=== PATIENT | female | born 1990 | race Hispanic/Latino ===

== ENCOUNTER 2016-11-04 23:59 | Inpatient (IN) | payer OTHER ==
[~2016-11-04] VITALS: Ht 162.6 cm; Wt 95.7 kg
[~2016-11-04 23:59] MED LIST: PREN1TAB47 PO
[2016-11-05] MEDS ORDERED: Lactated Ringer's 1,000 ML IV PRN (02:23)
[2016-11-05] MEDS ORDERED: Methylergonovine 0.2 mg/mL Inj IM PRN ×2 (02:25→08:15)
[2016-11-05] MEDS ORDERED: Oxytocin 30 Units/500 mL LR 30 UNITS in IV Premix 1 EACH IV PRN ×2 (02:25→08:15)
[2016-11-05] MEDS ORDERED: Oxytocin 10 Unit/mL Inj IM PRN ×2 (02:25→08:15)
[2016-11-05] MEDS ORDERED: fentaNYL-PF 50 mCg/mL 2 mL Inj IVPUSH PRN ×2 (02:25→03:55)
[2016-11-05] MEDS ORDERED: Penicillin G K Inj 5,000,000 UNITS in Dextrose 5% Minibag Plus 100 ML IV ONE (02:25)
[2016-11-05] MEDS ORDERED: Carboprost 250 mCg/mL Inj IM PRN ×2 (02:25→08:15)
[2016-11-05] MEDS ORDERED: Sodium Chloride LOK Flush 10 mL Syringe IVFLUSH PRN (02:25)
[2016-11-05] MEDS ORDERED: Hemorrhage Kit, Post Partum XX ONE ×2 (02:25→08:15)
[2016-11-05 02:35] LABS: Mean Corpuscular Hemoglobin 28.8 pg (27.0-35.0); Mean Corpuscular Volume 80.5 fL (81-100)
[2016-11-05] MEDS ORDERED: Lactated Ringer's 1,000 ML IV SCH ×2 (03:54→08:11)
[2016-11-05] MEDS ORDERED: Lactated Ringer's 500 ML IV ONE (03:54)
[2016-11-05] MEDS ORDERED: fentaNYL 2 mCg/mL-Bupiv 0.125% 100 ML EPIDURAL SCH (03:55)
[2016-11-05] MEDS ORDERED: Ondansetron 2 mg/mL 2 mL Inj IVPUSH PRN (03:55)
[2016-11-05] MEDS ORDERED: Phenylephrine/NS-PF 100 mCg/mL 5 mL Syringe IVPUSH PRN (03:55)
[2016-11-05] MEDS ORDERED: Atropine 1 mg/10 mL (Code) Syringe IVPUSH PRN (03:55)
[2016-11-05] MEDS ORDERED: EPHEDrine Sulfate 50 mg/mL Inj IVPUSH PRN (03:55)
--- NOTE | 2016-11-05 05:28 | PCM.HPANE ---
Patient Data Date of Service: November 05, 2016 ([id number]) Surgeon Admitting Provider:Jabari Madden MD Attending Provider:Jabari Madden MD Primary Care Physician:Greta Hardy Other Provider:Jos Townsend Anesthesia Reason for Visit LABOR LABOR Ht/WT & BMI Height (Feet): 5 Height (Inches): 2 Weight (Kilograms): 95 Body Mass Index Allergies Coded Allergies: No Known Allergies (Verified Allergy, Severe, 05/30/07) Past Anesthesia History Anesthesia History: Denies:: Abnormal Airway, Anesthesia Reactions, Difficult Intubation, Fam Anesthesia Reaction, Fam Malignant Hypertherm, Malignant Hyperthermia Diabetes History Hx Diabetes?: No MRSA MRSA: No Medications Reported Medications Vit/Fe Fumarate/Fa-Expunged Drug, Do (-Expunged Drug, Do Not Renew!)1 Tab Tablet1 Tab PO DAILY 01/16/10 History History of ENT Problems?: No HEENT History: Denies:: Abnormal Airway Cataracts Difficult Intubation Dysphagia Glaucoma Hearing Problem Sinus Problem TMJ Denture Type: None Teeth Condition: Tooth Decay Hx of Heart Problems?: No Cardiovascular History: Denies:: AICD Abdominal Aortic Aneurism Atrial Fibrillation Cardiac Surgery Chest Pain Congestive Heart Failure Coronary Artery Disease Edema Heart Murmur Hypertension Irregular Heartbeat Pacemaker Peripheral Vascular Rheumatic Fever Thrombophlebitis Valvular Heart Disease Hx of Respiratory Problem?: No Respiratory History: Denies:: Asthma COPD Chest Surgery Cough Dyspnea Emphysema Hemoptysis Oxygen Administration Pneumonia Pulmonary Embolism Tuberculosis Use of C-PAP Machine Use of Inhalers / NEBS Hx Neurologic Problems?: No Neurological History: Denies:: Alzheimer's Disease CVA Dementia Dizziness Headaches Multiple Sclerosis Parkinson's Disease Peripheral Neuropathy Seizures TIA Hx of GI Problems?: No Gastrointestinal History: Denies:: Cirrhosis Diverticulitis Gall Bladder Disease Gastroesphageal Reflux Gastrointestinal Bleeding Heartburn Hepatitis Hiatal Hernia Liver Disease Rectal Bleeding Hx of Problems?: No Genitourinary History: Denies:: HX of Hemodialysis Kidney Stones Urinary Tract Infection Female Hx: Positive for:: Currently Hx Musculoskeletal Problems?: No Musculoskeletal History: Denies:: Back Injury Degenerative Joint Fibromyalgia Joint Replacement Musculoskeletal Trauma Myasthenia Gravis Osteoarthritis Rheumatoid Arthritis Systemic Lupus Hx of Psycho/Social Problems?: No Psycho Social History: Denies:: Anxiety Bipolar Disorder Hx Depression Suicide Attempt Hx Surgeries?: No Hx Any Other Health Problems?: No Hx Diabetes: No Hx Alcohol Use: NoHx Substance Use: No Smoking Status: Never Smoker Have You Smoked inLast 12 mo: No Stop/Bang Treated for Sleep Apnea?: No Do You Have a CPAP Machine?: No S-Snoring: Do You Snore Loudly: No T-Tired: feel tired, fatigued: No O-Obsered: Observed not breath: No P-Blood Pressure: treated: No B- Body Mass Index > 35 kg/m2: Yes A- Age over 50: No N- Neck Large Circumference: No G- Gender Male: No MCKINLEY Risk Assessment: Low Risk, <3 Yes Risk Assessment Category Category 1A: Patient has history of documented sleep apnea, and HAS NOT received any narcotic, sedative or anesthesia administration during this stay. Category 1B: Patient has history of documented sleep apnea, and HAS received any narcotic , sedative or anesthesia administration during this stay Category 2: Patient has SUSPECTED Obstructive Sleep Apnea, and HAS received any narcotic , sedative or anesthesia administration during this stay. Category 3: Patient has SUSPECTED Obstructive Sleep Apnea and HAS NOT received narcotic, sedative or anesthesia administration during this stay. Category 4: Outpatient in Procedural Areas with known sleep apnea or who screen positive for High Risk via the STOP/BANG questionnaire. Exam Exam General Appearance: Alert, Oriented X3, Cooperative, No Acute Distress HEENT/AIRWAY: MP 3, Neck Movement (frp,), Mouth Opening (3), Other (tmd3) Lungs: Normal Air Movement Heart: Exam Unremarkable, Regular Rate/Rhythm, Normal S1, Normal S2, No Murmurs /Rubs/Gallops Meds/Labs/Diagnostics Admission Meds Current Medications Penicillin G Potassium/ Dextrose/Water (Pfizerpen Inj/ D5W Minibag Plus) 100 ml @ 240 mls/hr ONCE ONCE IV Last administered on 11/05/16t 03:30; Start at 02:25; Stop 11/05/16 at 02:49; Status DC Labs Test 11/05/16 02:10 White Blood Count 11.3th/mm3 (3.8-10.1) Red Blood Count 4.41mil/mm3 (3.90-5.20) Hemoglobin 12.7g/dL (12.0-15.6) Hematocrit 35.5% (35.0-46.0) Mean Corpuscular Volume 80.5fL (81-100) Mean Corpuscular Hemoglobin 28.8pg (27.0-35.0) Mean Corpuscular Hemoglobin Concent 35.8% (32.0-37.0) Red Cell Distribution Width 13.4% (12.3-15.4) Platelet Count 135bil/L (150-400) Plan Impression Patient chart reviewed, patient interviewed and anesthestic plan with risks, benefits, and alternatives discussed, and informed consent obtained. NPO per Anesth. Guidelines: No ASA Physical Status: ASA2 Mod Systemic Disease Anesthetic Plan: Epidural Bene/Risks/Altern/Consents: Yes HP Complete Prior to Induction: Yes Mahesh Orosco MD November 05, 2016 05:28
--- NOTE | 2016-11-05 06:53 | HP ---
[address] [address] HISTORY AND PHYSICAL PATIENT: HERIBERTO JULIEN : 1990 MR#: [id number] ADMIT: 11/05/2016 JOB ID: [id number] CHIEF COMPLAINT: Contractions. HISTORY OF PRESENTING ILLNESS: This is a 25 years old 3, para 2, at 39 weeks and 2 days with expected date of delivery of November 10, 2016, dated by 10 weeks ultrasound. The patient presented today to the triage room complaining of contractions. At presentation cervix found to be 2 cm and 50% effaced. On reassessment, cervix was 3 cm and 80% effaced with regular contractions with good movements. The patient was admitted for labor. Then spontaneous rupture of membrane occurred at 4:22 a.m., clear fluid. This complicated with: 1. Positive group B strep. PAST GYNECOLOGICAL HISTORY: Last menstrual period January 31, 2016. Menarche at age 13. Regular menstrual cycles monthly. Last menstrual period was not a sure date, was an approximate date. The patient was not on control pills at the time of conception. PAST OBSTETRIC HISTORY: First was a vaginal delivery on May 2007 at 39 weeks and 0 days, 6 pounds 15 ounces, female infant. Second was a normal vaginal delivery on January 2010 at 39 weeks and 0 days, male , 8 pounds 2 ounces. PAST MEDICAL HISTORY: Noncontributory. PAST SURGICAL HISTORY: None. ALLERGIES: No known drug allergies. MEDICATIONS: vitamins. FAMILY HISTORY: Father well and alive mother well and alive. Denies family history of coronary artery disease or diabetes. SOCIAL HISTORY: Denies alcohol, tobacco or illicit drug abuse. REVIEW OF SYSTEMS: Eleven point review of systems negative except for the items in the history of presenting illness. PHYSICAL EXAMINATION: heart tones with baseline 135, moderate variability, positive accelerations. No decelerations. Contractions every 3 minutes. Vital signs: Blood pressure 122/60, heart rate 102, respiratory rate 18, temperature 36.8. General: Alert and oriented to time, place and person. Head: Normocephalic, atraumatic. Neck is supple. Chest: Equal air entry bilaterally. No added sounds. Cardiovascular: S1 plus S2 plus zero. Regular rate and rhythm. Abdomen: Gravid, no tenderness. Estimated weight by Giuseppe maneuver is 8 pounds. Cervical exam: Last cervical exam at 3:43 a.m. was 4 cm, 80% effaced, -2 station and spontaneous rupture of membrane clear fluid at 4:22 a.m. ADMISSION LABORATORIES: White blood cells 11.3, hemoglobin 12.7, hematocrit 35.5, platelets 135. labs: Blood type O positive, antibody screening negative on March 31, 2016, rubella immune. Varicella titer is 710. RPR nonreactive. Hepatitis B surface antigen negative. HIV nonreactive. On March 31, 2016, hemoglobin A1c was 5.1. Hepatitis C negative and TSH 0.889. Chlamydia and gonorrhea screening was negative on April 22, 2016. Diabetes screening test within normal limits, August 02, 2016, result was 89. Group B strep positive on October 07, 2016. ASSESSMENT: This is a 25 years old 3, para 2-0-0-2 at 39 weeks and 2 days admitted with: 1. Active labor. 2. Spontaneous rupture of membrane on November 05, 2016, clear fluid. GBS positive, has epidural for pain management. PLAN: Continue to monitor. Anticipate normal vaginal delivery. MTDD
[2016-11-05] MEDS ORDERED: Penicillin G K Inj 3,000,000 UNITS in IV Premix 1 EACH IV SCH (07:30)
[2016-11-05] MEDS ORDERED: Benzocaine (Dermoplast) 20% 60 Gm Spray TOPICAL PRN (08:15)
[2016-11-05] MEDS ORDERED: Witch Hazel-Glycerin Pads TOPICAL PRN (08:15)
[2016-11-05] MEDS ORDERED: LANOlin HPA 7 Gm Ointment TOPICAL PRN (08:15)
[2016-11-05] MEDS ORDERED: Sodium Chloride LOK Flush 10 mL Syringe IVFLUSH SCH (08:30)
[2016-11-05] MEDS ORDERED: Ascorbic Acid 500 mg Tablet PO SCH (17:30)
--- NOTE | 2016-11-05 21:09 | PCM.ANEP1 ---
Post Anesthesia PACU Phase 1 Assessment Anesthetic Administered: Epidural Level of Alertness: Awake, talking ANDERSON's with Equal Strength: Yes Pain: No Nausea or Vomiting: No CV Function & Hydration Stable: No Airway Device: Lungs: Normal Air Movement PACU Phase 2 Assessment Complications: No Follow up Care: No Patient Instructions Provided: N/A Mitch Murcia MD November 05, 2016 21:08
--- NOTE | 2016-11-06 05:22 | OP ---
[address] [address] OPERATIVE REPORT PATIENT: HERIBERTO JULIEN : 1990 MR#: [id number] ADMIT: 11/05/2016 JOB ID: [id number] DATE OF SURGERY: 11/05/2016 SURGEON: Peng Riley MD PREOPERATIVE DIAGNOSIS(ES): POSTOPERATIVE DIAGNOSIS(ES): DESCRIPTION OF PROCEDURE: The patient is a 25-year-old, 3, para 3 now who came to Labor and Delivery at 1 a.m. on November 05, 2016, with complaints of contractions that started at around 9 o'clock in the evening. She was basil every 3 minutes. On exam, she was 4 cm dilated, she was admitted for delivery. The patient received an epidural and was progressing fast in labor. She was group B Strep positive. She received penicillin prophylaxis. The patient progressed to full dilation at 7:30 in the morning and started pushing at around the same time. At 7:49 a.m., she underwent spontaneous vaginal delivery, delivered a male with Apgars of 7 at one minute and 9 at five minutes. The gestational age was 39 weeks and two days. The weight of the was 3642 g. The patient has not had any lacerations. The placenta was delivered 3 minutes later and was found to be intact with three-vessel cord. Estimated blood loss was 200 mL. Pitocin was started right after delivery of the . Delayed cord clamping was done for one minute. Following delivery, all instrument and sponge counts were correct x2.
--- NOTE | 2016-11-06 05:31 | NUR ---
shift summary pt decision to bottle feed this noc shift. She tried to breast feed this evening x1. vss, FOB present in room, pt ambulating in room and to bthrm, lochia light. fundus firm at 1 below the Umbili., she is bonding with baby well. Cramping pain controlled with pain medication, tolerating well.
[2016-11-06 06:01] LABS: Mean Corpuscular Hemoglobin 28.7 pg (27.0-35.0); Mean Corpuscular Volume 84.2 fL (81-100)
--- NOTE | 2016-11-06 11:17 | PCM.DIMED ---
Discharge Instructions Date of Service November 06, 2016 Dates of Hospitalization November 05, 2016 at 01:39 Diet Discharge Diet: No restrictions Activity Discharge Activity: No restrictions Call your provider Call your provider for: Fever or Chills, Shortness of breath, Bleeding, Chest pain, Vomitting, Excessive diarrhea, Weakness (unilateral) Patient Instructions Follow-up with PCP in: 6 weeks Peng Riley MD November 06, 2016 11:17
[2016-11-06] MEDS ORDERED: OXYC5TAB72 PO (11:18)
[2016-11-06] MEDS ORDERED: IBUP800T28 PO (11:18)
[2016-11-06] MEDS ORDERED: FERR-74 PO (11:18)
[2016-11-06] MEDS ORDERED: DOCU-41 PO (11:18)
[2016-11-06 11:32] VITALS: BP 128/60; PULSE 80; RESP 17
--- NOTE | 2016-11-06 14:32 | DIS ---
[address] [address] DISCHARGE SUMMARY PATIENT: HERIBERTO JULIEN : 1990 MR#: [id number] ADMIT: 11/05/2016 JOB ID: [id number] DIS: 11/06/2016 ADMITTING DIAGNOSIS: A 25-year-old, 3, para 2, at 39 weeks and 2 days in active labor. DISCHARGE DIAGNOSIS: A 25-year-old, 3, para 3, status post spontaneous vaginal delivery at term. HOSPITAL COURSE: The patient is a 25-year-old, 3, para 3 now, who came to Labor and Delivery at 1 a.m., November 05, 2016 with complaint of contractions since 9 o'clock in the evening. They were regular and intense. She was admitted for delivery. She quickly progressed and became fully dilated at 7:30 in the morning. She received prophylaxis for positive GBS culture. Patient underwent fast spontaneous vaginal delivery at 7:49 a.m. Delivered a male with Apgars 7 at one minute and 9 at 5 minutes. The patient has not had any lacerations. Blood loss was 200 mL. The weight of the was 3642 g. The patient was doing well on her day one, was ambulating and . Vital signs were stable. She was afebrile. The WBC count was 11.8, hemoglobin 12.0, hematocrit 35.2, platelets 137, slight increase from admission platelet level. The patient was discharged home on day one, with all discharge criteria met, she received pain medications including Motrin 600 mg p.o. t.i.d. p.r.n., Percocet 5/325 mg p.o. t.i.d. p.r.n., Colace 100 mg p.o. b.i.d. Followup visit in OB clinic is scheduled in six weeks.
== END 2016-11-06 11:43 | disposition home or self-care (01) | DRG 775 ==
LOC: FBCO 23:59 → FBC 11-05 01:39
PROVIDERS: ADMIT Obstetrics & Gynecology; ATTEND Obstetrics & Gynecology
PROC: 10E0XZZ Delivery of Products of Conception, External Approach (ICD-10-PCS; principal; 2016-11-05)
DX: O99.824 Streptococcus B carrier state complicating childbirth (principal); Z37.0 Single live birth; Z3A.39 39 weeks gestation of pregnancy